=== PATIENT | female | born 1990 | race African-American/Black ===

== ENCOUNTER 2016-11-26 14:33 | Inpatient (IN) | payer OTHER ==
[~2016-11-26] VITALS: Ht 167.6 cm; Wt 66.4 kg
[2016-11-26] MEDS ORDERED: MULT-506 PO (15:23)
[2016-11-26] MEDS ORDERED: MELATAB2 PO (15:23)
--- NOTE | 2016-11-26 16:26 | DIAGNOSTIC IMAGING REPORT ---
RIGHT KNEE 3 VIEWS CLINICAL HISTORY: Bilateral knee pain following fall. COMPARISON: None FINDINGS: Alignment of the right knee is anatomic with the exception of slight lateral patellar tilt. There is no acute fracture or joint effusion. There is minimal spurring of the inferior patella at the origin of the patellar tendon. IMPRESSION: No acute fracture or joint effusion of the right knee. Electronically signed by: Vishnu Deleon M.D. 11/26/2016 4:24 PM Dictated Date/Time: 11/26/2016 4:23 PM
--- NOTE | 2016-11-26 16:27 | DIAGNOSTIC IMAGING REPORT ---
LEFT KNEE 3 VIEWS, LEFT TIBIA/FIBULA 2 VIEWS ROUTINE CLINICAL HISTORY: Fall 10 days ago; bilateral knee and lower leg pain COMPARISON STUDY: None. FINDINGS: No fracture or dislocation within the left knee, fibula, tibia. Soft tissues are unremarkable. No knee effusion. No radiopaque foreign bodies. IMPRESSION: No fracture or dislocation within the left knee, left tibia, or fibula. Electronically signed by: Ramez Self M.D. 11/26/2016 4:25 PM Dictated Date/Time: 11/26/2016 4:23 PM
--- NOTE | 2016-11-26 16:29 | DIAGNOSTIC IMAGING REPORT ---
RIGHT TIBIA/FIBULA 2 VIEWS ROUTINE CLINICAL HISTORY: Bilateral lower leg pain following fall 10 days ago. COMPARISON: None FINDINGS: No acute fracture of the right tibia or fibula is identified. Alignment of the right knee and ankle is anatomic. IMPRESSION: No acute fracture of the right tibia or fibula. Electronically signed by: Vishnu Deleon M.D. 11/26/2016 4:27 PM Dictated Date/Time: 11/26/2016 4:25 PM
[2016-11-26 17:30] LABS: BASO % 0.2 %; BASO ABS # 0.03 K/uL (0-0.2); COMPLETE YES; EOS % 2.3 %; HEMATOCRIT 41.7 % (37-47); IG% 0.2 %; LYMPH % 30.4 %; LYMPH ABS # 4.17 K/uL (1.2-3.4); MEAN CELL VOLUME 96.1 fL (80-100); MEAN CORPUSCULAR HEMOGLOBIN 34.1 pg (25-34); MEAN CORPUSCULAR HGB CONC 35.5 g/dl (32-36); MEAN PLATELET VOLUME 11.1 fL (7.4-10.4); MONO % 4.7 %; NEUT % 62.2 %; PLATELET COUNT 349 K/uL (130-400); RED BLOOD COUNT 4.34 M/uL (4.2-5.4); WHITE BLOOD COUNT 13.72 K/uL (4.8-10.8)
[2016-11-26 17:52] LABS: BUN/CREATININE RATIO 14.3 (10-20); CALCIUM 9.3 mg/dl (8.5-10.1); CREATININE 0.61 mg/dl (0.60-1.20); POTASSIUM 3.5 mmol/L (3.5-5.1); PREG INTERNAL NEGATIVE QC NEG CLEAR BACKGROUND; PREG INTERNAL POSITIVE QC POS CONTROL LINE
[2016-11-26 18:30] LABS: MANUAL MICROSCOPIC REQUIRED? NO; REVIEW REQ? NO; URINE APPEARANCE CLOUDY (CLEAR); URINE BILIRUBIN NEG (NEG); URINE COLOR YELLOW; URINE EPITHELIAL CELL AUTO >30 /lpf (0-5); URINE NITRITE NEG (NEG); URINE PH 7.5 (4.5-7.5); URINE SPECIFIC GRAVITY 1.015 (1.000-1.030); UROBILINOGEN NEG (NEG)
[2016-11-26] MEDS ORDERED: CYANOCOBALAMIN 1000 MCG/ML VIAL IM ONE (18:30)
[2016-11-26] MEDS ORDERED: LORAZEPAM 2 MG/ML 1 ML VIAL ONE (19:47)
[2016-11-26] MEDS ORDERED: AMOXICILLIN 500 MG/10 ML UDP PO STA (19:59)
[2016-11-26] MEDS ORDERED: SODIUM CHLORIDE 0.9% 1000ML 1,000 ML IV STA (19:59)
[2016-11-26] MEDS ORDERED: NURSING VERBAL MED ORDER ONE (20:00)
--- NOTE | 2016-11-26 20:40 | DIAGNOSTIC IMAGING REPORT ---
CERVICAL SPINE MRI HISTORY: Fall. Large weakness. TECHNIQUE: Multiplanar multisequence MRI of the cervical spine was performed without the use of contrast. COMPARISON STUDY: None. FINDINGS: Mild reversal of the normal large curvature. Alignment remains intact. No fracture or subluxation. The visualized posterior fossa is unremarkable. The cervical spinal cord demonstrates a normal signal intensity. Prevertebral soft tissues and the C1-C2 interval are intact. There is normal marrow signal intensity seen throughout the visit osseous structures. The disc spaces are preserved. C2-C3: No significant central canal or neural foraminal narrowing. C3-C4: No significant central canal or neural foraminal narrowing. C4-C5: Tiny focal central disc protrusion which abuts but does not significantly deform the anterior cord. No significant central canal or neural foraminal narrowing. C5-C6: No significant central canal or neural foraminal narrowing. C6-C7: No significant central canal or neural foraminal narrowing. C7-T1: No significant central canal or neural foraminal narrowing. IMPRESSION: 1. No fracture or subluxation within the cervical spine. 2. Mild reversal of the normal lordotic curvature. 3. Tiny focal central disc protrusion at C4-C5 which abuts the anterior cord. However, this no significant central canal or neural foraminal narrowing. Electronically signed by: Ramez Self M.D. 11/26/2016 8:38 PM Dictated Date/Time: 11/26/2016 8:31 PM
--- NOTE | 2016-11-26 20:48 | DIAGNOSTIC IMAGING REPORT ---
THORACIC SPINE MRI HISTORY: Fall. Lower extremity weakness. TECHNIQUE: Multiplanar multisequence MRI of the thoracic spine was performed without the use of contrast. COMPARISON: None. FINDINGS: Alignment is intact. No fracture or subluxation. No significant central canal or neural foraminal narrowing. Paraspinal soft tissues are unremarkable. Disc spaces are preserved. The thoracic spinal cord is normal and course, caliber, and signal intensity. Mild motion artifact. Mild dextroscoliosis. IMPRESSION: Mild dextroscoliosis. Otherwise, normal thoracic spine MRI. Electronically signed by: Ramez Self M.D. 11/26/2016 8:46 PM Dictated Date/Time: 11/26/2016 8:40 PM
--- NOTE | 2016-11-26 21:23 | DIAGNOSTIC IMAGING REPORT ---
LUMBAR SPINE MRI HISTORY: Fall. Lower extremity weakness. TECHNIQUE: Multiplanar multisequence MRI of the lumbar spine was performed without the use of contrast. COMPARISON: None. FINDINGS: For the purpose of the report the L5-S1 disc space will be located on axial image 27 of 30. The conus terminates at the T12-L1 disc space. Normal marrow signal intensity seen throughout the visualized osseous structures. No fracture or subluxation. The disc spaces are preserved. Paraspinal soft tissues are unremarkable. No disc herniations. L1-L2: No significant central canal or neural foraminal narrowing. L2-L3: No significant central canal or neural foraminal narrowing. L3-L4: No significant central canal or neural foraminal narrowing. L4-L5: No significant central canal or neural foraminal narrowing. L5-S1: No significant central canal or neural foraminal narrowing. IMPRESSION: Normal lumbar spine MRI. Electronically signed by: Ramez Self M.D. 11/26/2016 9:21 PM Dictated Date/Time: 11/26/2016 9:16 PM
--- NOTE | 2016-11-26 21:58 | EMERGENCY ROOM VISIT NOTE ---
ED Visit Note First contact with patient: 15:15 Chief Complaint: Lower leg muscle soreness and weakness. History of Present Illness: Ms. Wei is a 26-year-old [place] female who is brought into the ED via ambulance complaining of bilateral lower leg pain and weakness starting from the knees and extending distally to the feet. Historically patient reports that she abuses nitrous oxide. She had similar symptoms of pain and weakness in the lower extremities in December 2015. She was treated at the [facility] by Dr. Lance at that time with a series of B12 injections and she had resolution of symptoms. Patient goes on to report that she started abusing nitrous oxide approximately 3 -4 weeks ago. She then developed lower leg weakness and then fell approximately 10 steps as she was walking out of her house. She reports at the time of the fall she did not strike her head or have loss of consciousness. Since the fall she reports she has not been able to ambulate or bear her weight. She ordered a wheelchair online and has not ambulated or bear weight for the last 10 days. She reports her friend has been helping her by pushing her around and helping her off the wheelchair and onto the toilet and off the wheelchair and into a sofa bed for sleep. 3 days after her fall she started reporting she had was having bilateral knee pain and lower leg pain. She also noted she had pain with knee extension, attempts at weightbearing and attempts at ambulation. Additionally she noted that she was having lower leg swelling 2 days after her fall which is subsequently resolved. On arrival into the emergency department she reported that she was having soreness of the bilateral lower legs extending from the knees and into the feet. She initially indicated that her pain and symptoms were related to the fall. She provided the additional history as noted above after she was initially evaluated for the fall. Currently she describes the pain in both legs as a soreness sensation. She rates her discomfort 3/10. The pain once again extends from the knees down into the feet. Her pain worsens with attempts at weightbearing and palpation throughout this area of discomfort. She has not identified any alleviating factors related to the pain. She reports she has not taken any medications for pain prior to arrival at the hospital. Associated with her symptoms once again is the inability to ambulate or bear weight. She denies headache, dizziness, lightheadedness, visual changes, hearing changes , difficulty speaking, difficulty swallowing, difficulty coordinating upper extremity movements, upper extremity weakness/numbness/tingling, chest pain, shortness of breath, abdominal pain, nausea, vomiting, decreased appetite, cervical, thoracic and lumbar back pain, bowel and bladder dysfunction, genital/ rectal paresthesias. Review of Systems: As noted above in history of present illness. All body systems were reviewed and found to be negative as noted above. Past Medical History: Nitrous oxide abuse. Current Medications: Multivitamin, melatonin. Allergies to Medications: Patient denies. Social History: Patient is University student; she feels safe in her home environment; she denies tobacco use; she admits to alcohol use at nitrous oxide abuse. Physical Examination: Vital Signs: Date Time Temp Pulse Resp B/P Pulse Ox O2 Delivery O2 Flow Rate FiO2 11/26/16 21:12 90 18 126/57 99 Room Air 11/26/16 18:26 80 16 122/62 99 Room Air 11/26/16 14:39 37.1 80 16 131/66 97 Room Air GENERAL: 26-year-old female in no acute distress, nontoxic-appearing, afebrile and hemodynamically stable. NEUROLOGICAL: Awake, alert and oriented to person, place and time. Answering questions appropriately and following commands. Good hand eye coordination. Cranial nerves II through XII grossly intact. Pronator drift test negative. Good short-term and long-term recall. SKIN: Warm, dry and pink. Right Knee: Superficial laceration/abrasion over the patella. She also be noted that the patient has dry scaling skin over both lower legs and striae extending from the distal thigh over the knees anteriorly. HEENT: Atraumatic and normocephalic. Skull: No bony deformities, depressions or tenderness. No raccoon's eyes or sánchez signs. No drainage from the ears or the nostril; no hemotympanum. PERRLA. EOMI without nystagmus. No malocclusion. Airway patent. No intraoral trauma. Speech normal. Trachea midline. No jugular venous distention. BACK: No tenderness over the bony cervical, thoracic and lumbar spines. No tenderness throughout the paraspinous muscles. No muscle spasms palpable. THORAX: Lungs sounds are clear to auscultation and equal bilaterally with symmetrical chest wall. HEART: Regular rate and rhythm. No gallops, rubs or murmurs are appreciated. ABDOMEN: Flat, soft and nontender. Positive bowel sounds in all quadrants. No guarding, rigidity or organomegaly. PELVIS: Stable and nontender to compression and rock. UPPER EXTREMITIES: No gross bony deformities. No tenderness in the shoulders, elbows, forearms, wrists or hands. Full range of motion in these joints. All distal neurovascular statuses are intact and equal bilaterally. LOWER EXTREMITIES: No gross bony deformity. No shortening or malrotation. No tenderness over the hip or thigh. Mild diffuse tenderness over the entire knee with prominence over the joint lines. There is also tenderness throughout the lower leg including the calf, ankle and feet. Knee examination shows no joint effusions, patellar apprehension test, laxity of the collateral cruciate ligaments. No swelling or dependent edema noted throughout the lower legs. No calf tenderness or cords. No bony deformity at the ankle or foot. No laxity of the ankle ligamentous structures. 2+ patellar reflexes intact and equal bilaterally. Was not able to elicit a Achilles deep tendon reflexes. 4/5 muscle strength in abduction, abduction, flexion and extension of the hips, flexion and extension of the knees. Minimal movement at the ankles and toes but no appreciated strength. Patient was able to differentiate light and sharp sensations through all dermatomes of the lower leg. Dorsalis pedis and anterior tibialis pulses were intact and equal bilaterally. Capillary refill was brisk. No calf tenderness or cords. ED Course: Patient is assessed as noted above. Patient was offered pain medications and refused. Laboratory Testing: Test 11/26/16 17:17 11/26/16 17:30 11/26/16 18:48 Range/Units White Blood Count 13.72 4.8-10.8 K/uL Red Blood Count 4.34 4.2-5.4 M/uL Hemoglobin 14.8 12.0-16.0 g/dL Hematocrit 41.7 37-47 % Mean Corpuscular Volume 96.1 80-100 fL Mean Corpuscular Hemoglobin 34.1 25-34 pg Mean Corpuscular Hemoglobin Concent 35.5 32-36 g/dl Platelet Count 349 130-400 K/uL Mean Platelet Volume 11.1 7.4-10.4 fL Neutrophils (%) (Auto) 62.2 % Lymphocytes (%) (Auto) 30.4 % Monocytes (%) (Auto) 4.7 % Eosinophils (%) (Auto) 2.3 % Basophils (%) (Auto) 0.2 % Neutrophils # (Auto) 8.52 1.4-6.5 K/uL Lymphocytes # (Auto) 4.17 1.2-3.4 K/uL Monocytes # (Auto) 0.65 0.11-0.59 K/uL Eosinophils # (Auto) 0.32 0-0.5 K/uL Basophils # (Auto) 0.03 0-0.2 K/uL RDW Standard Deviation 52.3 36.4-46.3 fL RDW Coefficient of Variation 14.9 11.5-14.5 % Immature Granulocyte % (Auto) 0.2 % Immature Granulocyte # (Auto) 0.03 0.00-0.02 K/uL Sodium Level 141 136-145 mmol/L Potassium Level 3.5 3.5-5.1 mmol/L Chloride Level 106 98-107 mmol/L Carbon Dioxide Level 22 21-32 mmol/L Anion Gap 13.0 3-11 mmol/L Blood Urea Nitrogen 9 7-18 mg/dl Creatinine 0.61 0.60-1.20 mg/dl Est Creatinine Clear Calc Drug Dose 133.0 ml/min Estimated GFR () 147.1 Estimated GFR (Non- 126.9 BUN/Creatinine Ratio 14.3 10-20 Random Glucose 82 70-99 mg/dl Calcium Level 9.3 8.5-10.1 mg/dl Human Chorionic Gonadotropin, Qual NEG NEG Urine Color YELLOW Urine Appearance CLOUDY CLEAR Urine pH 7.5 4.5-7.5 Urine Specific [place] 1.015 1.000-1.030 Urine Protein NEG NEG Urine Glucose (UA) NEG NEG Urine Ketones 1+ NEG Urine Occult Blood NEG NEG Urine Nitrite NEG NEG Urine Bilirubin NEG NEG Urine Urobilinogen NEG NEG Urine Leukocyte Esterase LARGE NEG Urine WBC (Auto) 5-10 0-5 /hpf Urine RBC (Auto) 0-4 0-4 /hpf Urine Hyaline Casts (Auto) 1-5 0-5 /lpf Urine Epithelial Cells (Auto) >30 0-5 /lpf Urine Bacteria (Auto) 2+ NEG Vitamin B12 Level > 2000 211-911 pg/mL Right Knee X-Rays: Were read by myself and the radiologist showing no acute fractures or dislocations. No joint effusion. Left Knee X-Rays: Were read by myself and the radiologist showing no acute fractures or dislocations. No joint effusions. Right Lower Leg X-Rays: Were read by myself and the radiologist showing no acute fractures or dislocations. Left Lower Leg X-Rays: Were read by myself and the radiologist showing no acute fractures or dislocations. Cervical Spine MRI: Were reviewed by myself and read by the radiologist showing no fractures or subluxations, mild reversal of the normal lordotic curve, tiny focal central disc protrusion at the C4-C5 level which abuts the anterior cord but no significant central cord or no oral foramina narrowing. Thoracic Spine MRI: Was reviewed by myself and read by the radiologist and showed mild dextroscoliosis otherwise normal thoracic MRI. Lumbar Spine MRI: Was reviewed by myself and read by the radiologist and shows no acute fractures, subluxations. The disc space are well-preserved. No paraspinous soft tissue disruptions, no disc herniations; normal lumbar spine MRI. Patient's case was consult with Dr. Richardson, neurologist; he recommended MRI of the spine, basic laboratory testing, injection of 1000 g of vitamin B12 and transfer to tertiary care center. Patient's case was consulted with Dr. Rivera [facility], 2 times; he recommended transfer to tertiary care center for toxicology, back specialist and neurological specialist care. I initial spoke with Dr. Ortega, neurologist, at [facility], patient was accepted for transfer but the transfer center reported that there was no bed available and would probably not be available for 24-48 hours. I then spoke with Dr. Jaimes, hospitalist at [facility], he recommended that the MRIs be obtained and that he be recontacted for transfer; he did note that the hospital bed situation was critical. Patient was given an injection of B12 IM, 1000 g and was given 1 mg of Ativan IV for her claustrophobia for the MRI. Patient was assessed multiple times during her stay in the emergency department. Patient's case was reviewed with Dr. Lyman multiple times during her stay in the emergency department. After patient's MRI I reevaluated the patient she continued to have the same symptoms. I spoke with Dr. Vidales hospitalist, he recommended psychiatric evaluation. Patient's case was once again reviewed with Dr. Lyman; he apparently assessed the patient and contacted the psychiatrist on-call who recommended further evaluation to rule out medical causes of her symptoms. Additionally Dr. Lyman did contact the hospitalist for medical observation/admission. Patient was educated on tonight's findings. Clinical Impression: Bilateral lower neuropathy. Status post fall. Nitrous oxide abuse. Decision-Making: Initially my differential diagnosis I considered lower leg fracture, spinal cord injury, stroke, neurotoxicity from nitrous oxide abuse, conversion syndrome and other causes. Disposition and Plan: Patient's care was transferred to the hospitalist for final disposition and plan.
[2016-11-26] MEDS ORDERED: ACETAMINOPHEN 325 MG TAB PO PRN (23:15)
--- NOTE | 2016-11-27 00:04 | EMERGENCY ROOM VISIT NOTE ---
ED Visit Note First contact with patient: 17:13 This is a 26-year-old female who was seen in conjunction with the physician retail assistant store manager, Westley Beverly. The patient has abused nitrous oxide in the past and has had some lower extremity weakness related to this. She states that she has been abusing nitrous oxide recently and over the past 10 days, she has developed weakness in her lower extremities below the knees to the point where she is unable to walk and has been using a wheelchair. The patient's exam reveals weakness with dorsiflexion as well as some weakness with plantar flexion. The patient is unable to stand on her extremities because of the weakness. She is unable to walk. Evaluation included blood work as well as MRI of the complete spine. These were normal. Because of the patient's symptoms, the patient will be admitted by Dr. Vidales. I did speak with Dr. Navarrete at the request of Dr. Vidales. He feels that the patient requires additional medical evaluation in the hospital and mental health services can be consulted while the patient is in the hospital.
[2016-11-27 00:30] VITALS: O2SAT 98
--- NOTE | 2016-11-27 02:12 | History and Physical ---
History & Physical Date & Time of Service: Nov 27, 2016 at 01:57 Chief Complaint: Ambulatory Dysfunction, Nitrous Oxide Overdose Primary Care Physician: No Doctor, Assigned History of Present Illness Source: patient The patient is a 26-year-old Pashto female brought to the emergency Department via ambulance due to complaint of bilateral lower leg pain and weakness and inability to ambulate. Her initial symptoms began in December 2015 when she was first noted to abuse nitrous oxide. At that time, she was treated with a series of vitamin B12 injections, and reportedly had resolution of symptoms. She began to use nitrous oxide again approximately 3-4 weeks ago , and then again developed lower leg weakness and numbness, and at that time fell approximately 10 steps. She reports that since that time she has not been able to ambulate, and has been using a wheelchair that she purchased on her own since that time. She denies any other areas of pain, bladder or bowel incontinence, or functional impairment of upper extremity. Social History Smoking Status: Never Smoker Smokeless Tobacco Use: No Drug Use: other (nitrous oxide.) Marital Status: single Housing status: lives alone Multi-Drug Resistant Organisms History of MDRO: No Allergies Coded Allergies: No Known Allergies (Unverified , 11/26/16) Home Medications Scheduled Multivitamin (Multivitamin), 1 TAB PO DAILY Scheduled PRN Melatonin (Melatonin Maximum Strengt), 5 MG PO HS PRN for Sleep Review of Systems The patient denies chest pain, palpitations, shortness of breath, cough, vision change, hearing change, sore throat, fevers, chills, sweats, weight change, nausea, vomiting, abdominal pain, pelvic pain, blood in urine or stool, dysuria , urinary frequency or urgency, headache, memory loss, rash, abnormal bruising or bleeding, back or neck pain, night sweats, or allergy symptoms. The review of systems is otherwise negative other than for that already noted above, and at least 10 systems have been reviewed. Physical Exam Vital Signs Date Time Temp Pulse Resp B/P Pulse Ox O2 Delivery O2 Flow Rate FiO2 11/27/16 00:19 92 16 128/68 97 Room Air 11/26/16 22:19 89 118/64 99 Room Air 11/26/16 21:12 90 18 126/57 99 Room Air 11/26/16 18:26 80 16 122/62 99 Room Air 11/26/16 14:39 37.1 80 16 131/66 97 Room Air The patient is awake, well-developed and adequately nourished, alert and oriented 3, normocephalic and atraumatic, lying in bed and in no acute distress. HEENT--PERRL, EOMI, mucous membranes moist, and oropharynx normal. Neck--supple, no JVD or bruits, thyroid normal, trachea midline, no adenopathy. Heart--normal S1 and S2, no extra beats, no murmurs, rubs or gallops. Lungs--clear bilaterally with good air movement, no respiratory distress, no accessory muscle use. Abdomen--normal bowel sounds and soft, nontender and nondistended, no hernias or masses, no organomegaly. Extremities--no cyanosis, clubbing or edema. There are good distal pulses b/l. Dermatologic--normal skin turgor, normal color, warm and dry, no abnormal lymph nodes, no rash. Neuromuscular--cranial nerves II through XII grossly intact, upper extremities motor and sensory exam normal bilaterally. Lower extremity with normal examination except for inability to dorsiflex bilateral ankles. Sensation is intact. Psychiatric--flat affect. Diagnostics Laboratory Results Results Past 24 Hours Test 11/26/16 17:17 11/26/16 17:30 11/26/16 18:48 Range/Units White Blood Count 13.72 4.8-10.8 K/uL Red Blood Count 4.34 4.2-5.4 M/uL Hemoglobin 14.8 12.0-16.0 g/dL Hematocrit 41.7 37-47 % Mean Corpuscular Volume 96.1 80-100 fL Mean Corpuscular Hemoglobin 34.1 25-34 pg Mean Corpuscular Hemoglobin Concent 35.5 32-36 g/dl Platelet Count 349 130-400 K/uL Mean Platelet Volume 11.1 7.4-10.4 fL Neutrophils (%) (Auto) 62.2 % Lymphocytes (%) (Auto) 30.4 % Monocytes (%) (Auto) 4.7 % Eosinophils (%) (Auto) 2.3 % Basophils (%) (Auto) 0.2 % Neutrophils # (Auto) 8.52 1.4-6.5 K/uL Lymphocytes # (Auto) 4.17 1.2-3.4 K/uL Monocytes # (Auto) 0.65 0.11-0.59 K/uL Eosinophils # (Auto) 0.32 0-0.5 K/uL Basophils # (Auto) 0.03 0-0.2 K/uL RDW Standard Deviation 52.3 36.4-46.3 fL RDW Coefficient of Variation 14.9 11.5-14.5 % Immature Granulocyte % (Auto) 0.2 % Immature Granulocyte # (Auto) 0.03 0.00-0.02 K/uL Sodium Level 141 136-145 mmol/L Potassium Level 3.5 3.5-5.1 mmol/L Chloride Level 106 98-107 mmol/L Carbon Dioxide Level 22 21-32 mmol/L Anion Gap 13.0 3-11 mmol/L Blood Urea Nitrogen 9 7-18 mg/dl Creatinine 0.61 0.60-1.20 mg/dl Est Creatinine Clear Calc Drug Dose 133.0 ml/min Estimated GFR () 147.1 Estimated GFR (Non- 126.9 BUN/Creatinine Ratio 14.3 10-20 Random Glucose 82 70-99 mg/dl Calcium Level 9.3 8.5-10.1 mg/dl Human Chorionic Gonadotropin, Qual NEG NEG Urine Color YELLOW Urine Appearance CLOUDY CLEAR Urine pH 7.5 4.5-7.5 Urine Specific [place] 1.015 1.000-1.030 Urine Protein NEG NEG Urine Glucose (UA) NEG NEG Urine Ketones 1+ NEG Urine Occult Blood NEG NEG Urine Nitrite NEG NEG Urine Bilirubin NEG NEG Urine Urobilinogen NEG NEG Urine Leukocyte Esterase LARGE NEG Urine WBC (Auto) 5-10 0-5 /hpf Urine RBC (Auto) 0-4 0-4 /hpf Urine Hyaline Casts (Auto) 1-5 0-5 /lpf Urine Epithelial Cells (Auto) >30 0-5 /lpf Urine Bacteria (Auto) 2+ NEG Vitamin B12 Level > 2000 211-911 pg/mL Diagnostic Radiology Patient Name: HAJA LINDSEY Unit Number: [id number] Dictated: 11/26/161624 Transcribed: 11/26/161624 JA Printed Date/Time: [~ rep prt dt]/[~ rep prt tm] [~ rep ct labl] - [~ rep ct ivnm] [facility] [place] [place] [address] Dictated: 11/26/165 Transcribed: 11/26/161624 JA Printed Date/Time: [~ rep prt dt]/[~ rep prt tm] [~ rep ct labl] - [~ rep ct ivnm] RIGHT TIBIA/FIBULA 2 VIEWS ROUTINE CLINICAL HISTORY: Bilateral lower leg pain following fall 10 days ago. COMPARISON: None FINDINGS: No acute fracture of the right tibia or fibula is identified. Alignment of the right knee and ankle is anatomic. IMPRESSION: No acute fracture of the right tibia or fibula. Electronically signed by: Vishnu Deleon M.D. 11/26/2016 4:27 PM Dictated Date/Time: 11/26/2016 4:25 PM The status of this report is Signed. Draft = Not yet reviewed or approved by Radiologist. Signed = Reviewed and approved by Radiologist. <AttendingPhy></AttendingPhy> <FamilyPhy>No Doctor, Assigned</FamilyPhy> < PrimaryPhy>No Doctor, Assigned</PrimaryPhy> <UnitNumber>[id number]</UnitNumber> <VisitNumber>[id number]</VisitNumber> <PatientName>HAJA LINDSEY</PatientName> <DateOfBirth>1990</DateOfBirth> <Location>[facility]</Location> <ServiceDate></ServiceDate> <MNE>ESINDI</MNE> <OrderingPhy>Westley Beverly PA-C</ OrderingPhy> <OrderingPhyMNE>f rep ord dr bhardwaj</OrderingPhyMNE> <DictatingPhyMNE> f rep dict dr bhardwaj</DictatingPhyMNE> <CCListMNE>f rep ct mne</CCListMNE> < AdmittingPhyMNE>f pt admit dr bhardwaj</AdmittingPhyMNE> <AttendingPhyMNE>f pt attend dr bhardwaj</AttendingPhyMNE> <ConsultingPhyMNE>f pt consult dr bhardwaj</ConsultingPhyMNE> <FamilyPhyMNE>f pt fam dr bhardwaj</FamilyPhyMNE> <OtherPhyMNE>f pt other dr bhardwaj</OtherPhyMNE> < PrimaryPhyMNE>f pt prim care dr bhardwaj</PrimaryPhyMNE> <ReferringPhyMNE>f pt referring dr bhardwaj</ReferringPhyMNE> CLINICAL HISTORY: Fall 10 days ago; bilateral knee and lower leg pain COMPARISON STUDY: None. FINDINGS: No fracture or dislocation within the left knee, fibula, tibia. Soft tissues are unremarkable. No knee effusion. No radiopaque foreign bodies. IMPRESSION: No fracture or dislocation within the left knee, left tibia, or fibula. Electronically signed by: Ramez Self M.D. 11/26/2016 4:25 PM Dictated Date/Time: 11/26/2016 4:23 PM RIGHT KNEE 3 VIEWS CLINICAL HISTORY: Bilateral knee pain following fall. COMPARISON: None FINDINGS: Alignment of the right knee is anatomic with the exception of slight lateral patellar tilt. There is no acute fracture or joint effusion. There is minimal spurring of the inferior patella at the origin of the patellar tendon. IMPRESSION: No acute fracture or joint effusion of the right knee. Electronically signed by: Vishnu Deleon M.D. 11/26/2016 4:24 PM Dictated Date/Time: 11/26/2016 4:23 PM The status of this report is Signed Patient Name: HAJA LINDSEY Unit Number: [id number] Dictated: 11/26/161622 Transcribed: 11/26/161622 [employer] Printed Date/Time: [~ rep prt dt]/[~ rep prt tm] [~ rep ct labl] - [~ rep ct ivnm] [facility] [place] [place] [address] Dictated: 11/26/161622 Transcribed: 11/26/161622 [employer] Printed Date/Time: [~ rep prt dt]/[~ rep prt tm] [~ rep ct labl] - [~ rep ct ivnm] LEFT KNEE 3 VIEWS, LEFT TIBIA/FIBULA 2 VIEWS ROUTINE CLINICAL HISTORY: Fall 10 days ago; bilateral knee and lower leg pain COMPARISON STUDY: None. FINDINGS: No fracture or dislocation within the left knee, fibula, tibia. Soft tissues are unremarkable. No knee effusion. No radiopaque foreign bodies. IMPRESSION: No fracture or dislocation within the left knee, left tibia, or fibula. Electronically signed by: Ramez Self M.D. 11/26/2016 4:25 PM Dictated Date/Time: 11/26/2016 4:23 PM The status of this report is Signed. Draft = Not yet reviewed or approved by Radiologist. Signed = Reviewed and approved by Radiologist. <AttendingPhy></AttendingPhy> <FamilyPhy>No Doctor, Assigned</FamilyPhy> < PrimaryPhy>No Doctor, Assigned</PrimaryPhy> <UnitNumber>[id number]</UnitNumber> <VisitNumber>[id number]</VisitNumber> <PatientName>HAJA LINDSEY</PatientName> <DateOfBirth>1990</DateOfBirth> <Location>[facility]</Location> <ServiceDate></ServiceDate> <MNE>ESINDI</MNE> <OrderingPhy>Westley Beverly PA-C</ OrderingPhy> <OrderingPhyMNE>f rep ord dr bhardwaj</OrderingPhyMNE> <DictatingPhyMNE> f rep dict dr bhardwaj</DictatingPhyMNE> <CCListMNE>f rep ct mne</CCListMNE> < AdmittingPhyMNE>f pt admit dr bhardwaj</AdmittingPhyMNE> <AttendingPhyMNE>f pt attend dr bhardwaj</AttendingPhyMNE> <ConsultingPhyMNE>f pt consult dr bhardwaj</ConsultingPhyMNE> <FamilyPhyMNE>f pt fam dr bhardwaj</FamilyPhyMNE> <OtherPhyMNE>f pt other dr bhardwaj</OtherPhyMNE> < PrimaryPhyMNE>f pt prim care dr bhardwaj</PrimaryPhyMNE> <ReferringPhyMNE>f pt referring dr bhardwaj</ReferringPhyMNE> Patient Name: HAJA LINDSEY Unit Number: [id number] Dictated: 11/26/162039 Transcribed: 11/26/162039 [employer] Printed Date/Time: [~ rep prt dt]/[~ rep prt tm] [~ rep ct labl] - [~ rep ct ivnm] [facility] [place] [place] [address] Dictated: 11/26/162039 Transcribed: 11/26/162039 [facility] Printed Date/Time: [~ rep prt dt]/[~ rep prt tm] [~ rep ct labl] - [~ rep ct ivnm] THORACIC SPINE MRI HISTORY: Fall. Lower extremity weakness. TECHNIQUE: Multiplanar multisequence MRI of the thoracic spine was performed without the use of contrast. COMPARISON: None. FINDINGS: Alignment is intact. No fracture or subluxation. No significant central canal or neural foraminal narrowing. Paraspinal soft tissues are unremarkable. Disc spaces are preserved. The thoracic spinal cord is normal and course, caliber, and signal intensity. Mild motion artifact. Mild dextroscoliosis. IMPRESSION: Mild dextroscoliosis. Otherwise, normal thoracic spine MRI. Electronically signed by: Ramez Self M.D. 11/26/2016 8:46 PM Dictated Date/Time: 11/26/2016 8:40 PM The status of this report is Signed. Draft = Not yet reviewed or approved by Radiologist. Signed = Reviewed and approved by Radiologist. <AttendingPhy></AttendingPhy> <FamilyPhy>No Doctor, Assigned</FamilyPhy> < PrimaryPhy>No Doctor, Assigned</PrimaryPhy> <UnitNumber>[id number]</UnitNumber> <VisitNumber>[id number]</VisitNumber> <PatientName>HAJA LINDSEY</PatientName> <DateOfBirth>1990</DateOfBirth> <Location>[facility]</Location> <ServiceDate></ServiceDate> <MNE>ESINDI</MNE> <OrderingPhy>Tavo Lyman D.O.</ OrderingPhy> <OrderingPhyMNE>f rep ord dr bhardwaj</OrderingPhyMNE> <DictatingPhyMNE> f rep dict dr bhardwaj</DictatingPhyMNE> <CCListMNE>f rep ct mne</CCListMNE> < AdmittingPhyMNE>f pt admit dr bhardwaj</AdmittingPhyMNE> <AttendingPhyMNE>f pt attend dr bhardwaj</AttendingPhyMNE> <ConsultingPhyMNE>f pt consult dr bhardwaj</ConsultingPhyMNE> <FamilyPhyMNE>f pt fam dr bhardwaj</FamilyPhyMNE> <OtherPhyMNE>f pt other dr bhardwaj</OtherPhyMNE> < PrimaryPhyMNE>f pt prim care dr bhardwaj</PrimaryPhyMNE> <ReferringPhyMNE>f pt referring dr bhardwaj</ReferringPhyMNE> Patient Name: HAJA LINDSEY Unit Number: [id number] Dictated: 11/26/162115 Transcribed: 11/26/162115 [facility] Printed Date/Time: [~ rep prt dt]/[~ rep prt tm] [~ rep ct labl] - [~ rep ct ivnm] [facility] [place] [place] [address] Dictated: 11/26/162115 Transcribed: 11/26/162115 [facility] Printed Date/Time: [~ rep prt dt]/[~ rep prt tm] [~ rep ct labl] - [~ rep ct ivnm] HISTORY: Fall. Lower extremity weakness. TECHNIQUE: Multiplanar multisequence MRI of the lumbar spine was performed without the use of contrast. COMPARISON: None. FINDINGS: For the purpose of the report the L5-S1 disc space will be located on axial image 27 of 30. The conus terminates at the T12-L1 disc space. Normal marrow signal intensity seen throughout the visualized osseous structures. No fracture or subluxation. The disc spaces are preserved. Paraspinal soft tissues are unremarkable. No disc herniations. L1-L2: No significant central canal or neural foraminal narrowing. L2-L3: No significant central canal or neural foraminal narrowing. L3-L4: No significant central canal or neural foraminal narrowing. L4-L5: No significant central canal or neural foraminal narrowing. L5-S1: No significant central canal or neural foraminal narrowing. IMPRESSION: Normal lumbar spine MRI. Electronically signed by: Ramez Slef M.D. 11/26/2016 9:21 PM Dictated Date/Time: 11/26/2016 9:16 PM The status of this report is Signed. Draft = Not yet reviewed or approved by Radiologist. Signed = Reviewed and approved by Radiologist. <AttendingPhy></AttendingPhy> <FamilyPhy>No Doctor, Assigned</FamilyPhy> < PrimaryPhy>No Doctor, Assigned</PrimaryPhy> <UnitNumber>[id number]</UnitNumber> <VisitNumber>[id number]</VisitNumber> <PatientName>HAJA LINDSEY</PatientName> <DateOfBirth>1990</DateOfBirth> <Location>[facility]</Location> <ServiceDate></ServiceDate> <MNE>ESINDI</MNE> <OrderingPhy>Tavo Lyman D.O.</ OrderingPhy> <OrderingPhyMNE>f rep ord dr bhardwaj</OrderingPhyMNE> <DictatingPhyMNE> f rep dict dr bhardwaj</DictatingPhyMNE> <CCListMNE>f rep ct mne</CCListMNE> < AdmittingPhyMNE>f pt admit dr bhardwaj</AdmittingPhyMNE> <AttendingPhyMNE>f pt attend dr bhardwaj</AttendingPhyMNE> <ConsultingPhyMNE>f pt consult dr bhardwaj</ConsultingPhyMNE> <FamilyPhyMNE>f pt fam dr bhardwaj</FamilyPhyMNE> <OtherPhyMNE>f pt other dr bhardwaj</OtherPhyMNE> < PrimaryPhyMNE>f pt prim care dr bhardwaj</PrimaryPhyMNE> <ReferringPhyMNE>f pt referring dr bhardwaj</ReferringPhyMNE> Patient Name: HAJA LINDSEY Unit Number: [id number] Dictated: 11/26/162030 Transcribed: 11/26/162030 [facility] Printed Date/Time: [~ rep prt dt]/[~ rep prt tm] [~ rep ct labl] - [~ rep ct ivnm] [facility] [place] [place] [address] Dictated: 11/26/162030 Transcribed: 11/26/162030 [facility] Printed Date/Time: [~ rep prt dt]/[~ rep prt tm] [~ rep ct labl] - [~ rep ct ivnm] HISTORY: Fall. Large weakness. TECHNIQUE: Multiplanar multisequence MRI of the cervical spine was performed without the use of contrast. COMPARISON STUDY: None. FINDINGS: Mild reversal of the normal large curvature. Alignment remains intact. No fracture or subluxation. The visualized posterior fossa is unremarkable. The cervical spinal cord demonstrates a normal signal intensity. Prevertebral soft tissues and the C1-C2 interval are intact. There is normal marrow signal intensity seen throughout the visit osseous structures. The disc spaces are preserved. C2-C3: No significant central canal or neural foraminal narrowing. C3-C4: No significant central canal or neural foraminal narrowing. C4-C5: Tiny focal central disc protrusion which abuts but does not significantly deform the anterior cord. No significant central canal or neural foraminal narrowing. C5-C6: No significant central canal or neural foraminal narrowing. C6-C7: No significant central canal or neural foraminal narrowing. C7-T1: No significant central canal or neural foraminal narrowing. IMPRESSION: 1. No fracture or subluxation within the cervical spine. 2. Mild reversal of the normal lordotic curvature. 3. Tiny focal central disc protrusion at C4-C5 which abuts the anterior cord. However, this no significant central canal or neural foraminal narrowing. Electronically signed by: Ramez Self M.D. 11/26/2016 8:38 PM Dictated Date/Time: 11/26/2016 8:31 PM The status of this report is Signed. Draft = Not yet reviewed or approved by Radiologist. Signed = Reviewed and approved by Radiologist. <AttendingPhy></AttendingPhy> <FamilyPhy>No Doctor, Assigned</FamilyPhy> < PrimaryPhy>No Doctor, Assigned</PrimaryPhy> <UnitNumber>[id number]</UnitNumber> <VisitNumber>[id number]</VisitNumber> <PatientName>HAJA LINDSEY</PatientName> <DateOfBirth>1990</DateOfBirth> <Location>[facility]</Location> <ServiceDate></ServiceDate> <MNE>ESINDI</MNE> <OrderingPhy>Tavo Lyman D.O.</ OrderingPhy> <OrderingPhyMNE>f rep ord dr bhardwaj</OrderingPhyMNE> <DictatingPhyMNE> f rep dict dr bhardwaj</DictatingPhyMNE> <CCListMNE>f rep ct mne</CCListMNE> < AdmittingPhyMNE>f pt admit dr bhardwaj</AdmittingPhyMNE> <AttendingPhyMNE>f pt attend dr bhardwaj</AttendingPhyMNE> <ConsultingPhyMNE>f pt consult dr bhardwaj</ConsultingPhyMNE> <FamilyPhyMNE>f pt fam dr bhardwaj</FamilyPhyMNE> <OtherPhyMNE>f pt other dr bhardwaj</OtherPhyMNE> < PrimaryPhyMNE>f pt prim care dr bhardwaj</PrimaryPhyMNE> <ReferringPhyMNE>f pt referring dr bhardwaj</ReferringPhyMNE> Impression Assessment and Plan 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 She has had an extensive set of imaging studies while in the emergency department. She will be admitted to the medical floor, for EMG/NCV studies, and neurology consult. If this assessment is otherwise negative, she may need an inpatient rehabilitation stay. Of note, attempts were made to refer the patient to several tertiary care centers, with no beds available. She will also need a psychiatry assessment. Level of Care Med/Surg Advanced Directives Existing Advance Directive: No Existing Living Will: No Existing Power of Staff Occupational Therapist: No Resuscitation Status FULL RESUSCITATION VTE Prophylaxis VTE Risk Assessment Done? Y/N: Yes Risk Level: High Given or contraindicated: SCD's
[2016-11-27 04:36] VITALS: BP 91/60; PULSE 85; TEMP 36.5; O2SAT 98; Ht 167.6 cm; Wt 66.4 kg
[2016-11-27 06:31] LABS: INR 1.1 (0.9-1.1); PROTHROMBIN TIME (PATIENT) 11.9 SECONDS (9.0-12.0)
[2016-11-27] MEDS: MULTIVITAMIN TAB PO SCH (07:55)
[2016-11-27] MEDS: ENOXAPARIN 40 MG/0.4 ML SYR SQ SCH (07:55)
[2016-11-27] MEDS ORDERED: INFLUENZA VIRUS QUAD VACCINE 0.5 ML SYR IM. ONE (08:00)
[2016-11-27] MEDS ORDERED: INFLUENZA ADMINISTRATION CHARGE ONE (08:00)
[2016-11-27 10:00] VITALS: BP 100/65; PULSE 87; TEMP 36.7; O2SAT 100
--- NOTE | 2016-11-27 10:50 | Neurology Consultation ---
Neurology Consultation Date of Consultation: Nov 27, 2016. Attending Physician: Henry Gutierrez M.D. 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 The patient has had similar symptoms last December secondary to nitrous oxide abuse and toxicity. Symptoms improved after B12 injections for about a month. She does report that in the last year she has not been very physical, and is noted that she doesn't seem to have the same endurance with running. Per review of the outpatient chart Dr. Howe seen her for the same problem in January. At that time he noted that she had a history of also alcohol abuse in the past as well. Patient denies any current alcohol use. Unfortunately the patient started using nitrous oxide again about a month ago. In the last 3 weeks she's had slowly progressive pain in her legs, numbness and tingling, and a sense of leg weakness causing ambulatory dysfunction. She reported that at the beginning of November she bought a wheelchair over the Internet to help her with ambulatory dysfunction. She has not been reevaluated since symptoms have recurred. A year ago she was initially treated by her primary care with B12 injections. Patient denies any significant issues or symptoms with her upper extremities. Denies any trouble eating or swallowing. She does report over the last year some mild thinking and memory problems. No bowel or bladder symptoms. MRI of her C-spine, T-spine, and L-spine were done on this admission were reviewed by myself and normal. MRI of the brain reported images from last year were reviewed and unremarkable. Patient did have her B12 level checked after an injection and was found to be above 2000. Past Medical/Surgical History History of polysubstance abuse including alcohol, nitrous oxide, and tobacco Patient denies any other major health problems Family History No family history of neuromuscular disorders Social History Patient is a [employer]. She is normally independent in her activities of daily living. She has been using a wheelchair on her own for the last 2 weeks. She has been using nitrous oxide recreationally. History of alcohol abuse/excess. She does smoke tobacco. Smokeless Tobacco Use: No Drug Use: other (nitrous oxide.) Marital Status: single Allergies Coded Allergies: No Known Allergies (Unverified , 11/26/16) Current Inpatient Medications Current Inpatient Medications Medications (Trade) Dose Ordered Sig/Anna Route Start Time Stop Time Status Last Admin Dose Admin Acetaminophen (Tylenol Tab) 650 mg Q4H PRN PO 11/26/16 23:15 12/26/16 23:14 Multivitamins (Multivitamin Tab) 1 tab DAILY PO 11/27/16 08:00 12/27/16 08:59 11/27/16 07:55 1 TAB Enoxaparin Sodium (Lovenox Inj) 40 mg QAM SQ 11/27/16 08:00 12/27/16 08:59 11/27/16 07:55 40 MG Review of Systems Except for the above noted in history of present illness, complete review of systems is otherwise negative. Physical Exam Vital Signs (Past 24 Hrs): Date Time Temp Pulse Resp B/P Pulse Ox O2 Delivery O2 Flow Rate FiO2 11/27/16 04:36 36.5 85 20 91/60 98 Room Air 11/27/16 00:30 98 Room Air 11/27/16 00:19 92 16 128/68 97 Room Air 11/26/16 22:19 89 118/64 99 Room Air 11/26/16 21:12 90 18 126/57 99 Room Air 11/26/16 18:26 80 16 122/62 99 Room Air 11/26/16 14:39 37.1 80 16 131/66 97 Room Air Gen.: Patient is alert and oriented in no acute distress lying in bed Heart: Regular rate and rhythm Extremities: No gross deformities or rashes noted Neurological examination: Mental status: Patient is alert and oriented to person place and time. Able to give his own history. Attention concentration normal for the situation. Speech is fluent without any dysarthria or aphasia noted Cranial nerves: Funduscopic examination was difficult to visualize. Pupils equally round and reactive to light. Extraocular muscles intact without nystagmus. No facial asymmetry noted. Facial sensation intact. Tongue midline. Good palatal elevation. Good shoulder shrug bilaterally. Hearing grossly intact voice. Strength: 5/5 both proximal and bilateral upper extremities. Bilateral hip flexion 4+/5, knee extension and flexion 4+/5, dorsiflexion 3/5, plantarflexion 3+/5.Tone is normal. Sensation: Grossly intact to light touch in all extremities. Patient does have decrease sensation in her distal lower extremities approximately to the level of the mid calf bilaterally (left greater than right) to light touch. The patient has severe vibratory loss in distal lower extremities. Mild position sense loss. Deep tendon reflexes: +2 in bilateral & biceps, and trace patellar. Toes are up- going to plantar stimulation bilaterally Coordination: Patient has good finger to nose without dysmetria Station within the bed is normal. Gait was not tested as the patient did not feel safe standing reports she needs both arms hang onto something. Laboratory Results Past 24 Hours: 11/26/16: Red Blood Count 4.34, Mean Corpuscular Volume 96.1, Mean Corpuscular Hemoglobin 34.1, Mean Corpuscular Hemoglobin Concent 35.5, Mean Platelet Volume 11.1, Neutrophils (%) (Auto) 62.2, Lymphocytes (%) (Auto) 30.4, Monocytes (%) (Auto) 4.7, Eosinophils (%) (Auto) 2.3, Basophils (%) (Auto) 0.2, Neutrophils # (Auto) 8.52, Lymphocytes # (Auto) 4.17, Monocytes # (Auto) 0.65, Eosinophils # (Auto) 0.32, Basophils # (Auto) 0.03 11/26/16 17:17 Test 11/26/16 17:17 11/26/16 17:30 11/26/16 18:48 11/27/16 05:42 White Blood Count 13.72 K/uL (4.8-10.8) Red Blood Count 4.34 M/uL (4.2-5.4) Hemoglobin 14.8 g/dL (12.0-16.0) Hematocrit 41.7 % (37-47) Mean Corpuscular Volume 96.1 fL (80-100) Mean Corpuscular Hemoglobin 34.1 pg (25-34) Mean Corpuscular Hemoglobin Concent 35.5 g/dl (32-36) Platelet Count 349 K/uL (130-400) Mean Platelet Volume 11.1 fL (7.4-10.4) Neutrophils (%) (Auto) 62.2 % Lymphocytes (%) (Auto) 30.4 % Monocytes (%) (Auto) 4.7 % Eosinophils (%) (Auto) 2.3 % Basophils (%) (Auto) 0.2 % Neutrophils # (Auto) 8.52 K/uL (1.4-6.5) Lymphocytes # (Auto) 4.17 K/uL (1.2-3.4) Monocytes # (Auto) 0.65 K/uL (0.11-0.59) Eosinophils # (Auto) 0.32 K/uL (0-0.5) Basophils # (Auto) 0.03 K/uL (0-0.2) RDW Standard Deviation 52.3 fL (36.4-46.3) RDW Coefficient of Variation 14.9 % (11.5-14.5) Immature Granulocyte % (Auto) 0.2 % Immature Granulocyte # (Auto) 0.03 K/uL (0.00-0.02) Anion Gap 13.0 mmol/L (3-11) Est Creatinine Clear Calc Drug Dose 133.0 ml/min Estimated GFR () 147.1 Estimated GFR (Non- 126.9 BUN/Creatinine Ratio 14.3 (10-20) Calcium Level 9.3 mg/dl (8.5-10.1) Human Chorionic Gonadotropin, Qual NEG (NEG) Urine Color YELLOW Urine Appearance CLOUDY (CLEAR) Urine pH 7.5 (4.5-7.5) Urine Specific [place] 1.015 (1.000-1.030) Urine Protein NEG (NEG) Urine Glucose (UA) NEG (NEG) Urine Ketones 1+ (NEG) Urine Occult Blood NEG (NEG) Urine Nitrite NEG (NEG) Urine Bilirubin NEG (NEG) Urine Urobilinogen NEG (NEG) Urine Leukocyte Esterase LARGE (NEG) Urine WBC (Auto) 5-10 /hpf (0-5) Urine RBC (Auto) 0-4 /hpf (0-4) Urine Hyaline Casts (Auto) 1-5 /lpf (0-5) Urine Epithelial Cells (Auto) >30 /lpf (0-5) Urine Bacteria (Auto) 2+ (NEG) Vitamin B12 Level > 2000 pg/mL (211-911) Prothrombin Time 11.9 SECONDS (9.0-12.0) Prothromb Time International Ratio 1.1 (0.9-1.1) Imaging As noted above in history of present illness Impression This is a 26-year-old right-handed female with signs of neurotoxicity secondary to nitrous oxide abuse. Residual neurological symptoms include severe vibratory and position sense loss , signs of gradient peripheral neuropathy, distal greater than proximal leg weakness, gait dysfunction, and suspicion for possible cognitive side effects. Plan No neurological workup necessary at this time. It appears that her symptoms are secondary to nitrous oxide abuse (which is a primary toxicology issues not a neurological issue). Nitrous oxide changes cobalt in vitamin B12 from Co1+ to Co2+, so it is ineffective to follow serum B12 levels as they are often normal or elevated. The problem is that the patient does not have a functional vitamin B12 that can be used by her nerves creating impaired nerve myelination. The treatment is empiric B12 injections. There is no right or wrong way to treat with B12 replacement injections. A reasonable treatment course would be B12 [id number] 3 times a week or weekly for 1-2 months. Follow-up with primary care for B12 injections Follow-up with physical therapy for treatment. Agree with psychiatric evaluation for drug abuse and treatment. There is no indication for EMG at this time. EMG would be technically limited in the hospital and potentially could be normal with symptoms lasting less than 6 weeks. In addition EMG would not change the patient's acute treatment. If the patient does not fully recover in 2 months, could consider an outpatient EMG for neurological prognostication. I did discuss with the patient that her symptoms are likely due to nitrous oxide abuse. Also discussed that with chronic nitrous oxide abuse there is the potential for permanent neurological damage. This not only includes her peripheral nerves but can also include her brain with permanent cognitive deficits. Could consider checking vitamin E level, vitamin D level, and vitamin B6 level for other nutritional deficiencies that could contribute to her symptoms. Please note that vitamin B6 is the one vitamin that can cause neurotoxicity if levels are too low or too high. Otherwise there is no need for neurological follow-up at this time as this is more of a toxicology case rather than a primary neurological issue. Please call or page me if there is any questions or concerns.
--- NOTE | 2016-11-27 11:07 | Medical Student: [facility] ---
Med Student History & Physical Date & Time of Service: Nov 27, 2016 at 09:01 Chief Complaint: Ambulatory Dysfunction, Nitrous Oxide Overdose Primary Care Physician: No Doctor, Assigned History of Present Illness Source: patient, hospital records 26-year-old female presenting to the emergency department with 3-4 weeks of weakness and pain in her distal lower extremities bilaterally. Patient explains that symptoms are secondary to nitrous oxide use. Her leg weakness has gotten worse over the past ten days. She purchased a wheelchair after falling down being unable to stand. She did not come to the hospital earlier because she was uninsured until 11/26. She also noted ankle swelling over the course of symptoms which subsided days ago. She also has difficulty standing and ataxia that she does not attribute to her leg weakness. She says she feels as though "she forgot how to stand". She experienced similar symptoms in December of this year. At this time the weakness in her legs was accompanied by weakness in her hands. She went to Dr. Mcpherson at [facility] and received daily vitamin B12 injections. She had an MRI of her head at that time which was unremarkable. Her symptoms improved over the next month. She does note that although her symptoms improved , she continued to have residual weakness that she attributed to not being physically active. She was given vitamin B12 IM 1000mg at 16:30 on 11/26. She notes improvement in lower extremity weakness since that time. She was able to stand to use the bathroom with assistance from nursing, but still had poor balance. 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 Past medical history is unremarkable as is family history. She is not on any home medications. Family History Father: no pertinent history Mother: no pertinent history Social History Smoking Status: Current Every Day Smoker Smokeless Tobacco Use: No Drug Use: other (nitrous oxide.) Marital Status: single Housing status: lives alone Occupational Status: [employer] student Allergies Coded Allergies: No Known Allergies (Unverified , 11/26/16) Medications Melatonin (Melatonin Maximum Strengt), 5 MG PO HS PRN for Sleep Multivitamin (Multivitamin), 1 TAB PO DAILY Review of Systems As stated in HPI, otherwise unremarkable Physical Exam Vital Signs (24 Hours) Date Time Temp Pulse Resp B/P Pulse Ox O2 Delivery O2 Flow Rate FiO2 11/27/16 04:36 36.5 85 20 91/60 98 Room Air 11/27/16 00:30 98 Room Air 11/27/16 00:19 92 16 128/68 97 Room Air 11/26/16 22:19 89 118/64 99 Room Air 11/26/16 21:12 90 18 126/57 99 Room Air 11/26/16 18:26 80 16 122/62 99 Room Air 11/26/16 14:39 37.1 80 16 131/66 97 Room Air General Appearance: WD/WN, no apparent distress Head: normocephalic, atraumatic Eyes: normal inspection, PERRL, EOMI Neurologic/Psych: alert, normal mood/affect, oriented x 3 Mental Status: oriented to person, place and time. Affect was appropriate. Did take time to answer questions, but that appeared to be due to language barrier. Memory appeared intact. Cranial Nerves: CN1: not assessed CN2: intact, PERRL, visual acuity appropriate, visual field appropriate, funduscopic exam unremarkable. CN3,4, and 6: intact on assessment, EOMI, no ptosis CN5: intact, bilateral sensation to light touch in three regions. CN7: intact, facial expressions appropriate, puffs out cheeks, resists eye opening. No dysarthria. CN8: intact, no difficulty hearing bilaterally. CN9, 10: intact, symmetric palate elevation. CN11: intact, shoulder shrug 5/5 bilaterally CN12: intact, tongue protrudes midline. Sensory: sensation to light touch intact and equal bilaterally in upper and lower extremities. Vibratory sensation is intact in upper extremities, but absent in distal lower extremities. Proprioception is intact in upper and lower extremities bilaterally. Motor: Strength is 5/5 in upper extremities bilaterally in deltoids, biceps, triceps, finger abduction and finger police clerk. Strength is 4+/5 in hip flexion and extension and knee flexion and extension. Strength is 3/5 bilaterally in ankle plantarflexion and dorsiflexion. Reflexes are 2+ bilaterally in biceps and brachioradialis. Absent reflexes in bilateral patellas and Achilles. Upgoing Babinski reflex bilaterally. Tone appears normal, no rigidity or spasticity, no atrophy appreciated. Cerebellar: finger to nose intact, heal to pantoja intact. Did not have patient stand to appreciate gait. Diagnostics Laboratory Results Results Past 24 Hours Test 11/26/16 17:17 11/26/16 17:30 11/26/16 18:48 11/27/16 05:42 Range/Units White Blood Count 13.72 4.8-10.8 K/uL Red Blood Count 4.34 4.2-5.4 M/uL Hemoglobin 14.8 12.0-16.0 g/dL Hematocrit 41.7 37-47 % Mean Corpuscular Volume 96.1 80-100 fL Mean Corpuscular Hemoglobin 34.1 25-34 pg Mean Corpuscular Hemoglobin Concent 35.5 32-36 g/dl Platelet Count 349 130-400 K/uL Mean Platelet Volume 11.1 7.4-10.4 fL Neutrophils (%) (Auto) 62.2 % Lymphocytes (%) (Auto) 30.4 % Monocytes (%) (Auto) 4.7 % Eosinophils (%) (Auto) 2.3 % Basophils (%) (Auto) 0.2 % Neutrophils # (Auto) 8.52 1.4-6.5 K/uL Lymphocytes # (Auto) 4.17 1.2-3.4 K/uL Monocytes # (Auto) 0.65 0.11-0.59 K/uL Eosinophils # (Auto) 0.32 0-0.5 K/uL Basophils # (Auto) 0.03 0-0.2 K/uL RDW Standard Deviation 52.3 36.4-46.3 fL RDW Coefficient of Variation 14.9 11.5-14.5 % Immature Granulocyte % (Auto) 0.2 % Immature Granulocyte # (Auto) 0.03 0.00-0.02 K/uL Sodium Level 141 136-145 mmol/L Potassium Level 3.5 3.5-5.1 mmol/L Chloride Level 106 98-107 mmol/L Carbon Dioxide Level 22 21-32 mmol/L Anion Gap 13.0 3-11 mmol/L Blood Urea Nitrogen 9 7-18 mg/dl Creatinine 0.61 0.60-1.20 mg/dl Est Creatinine Clear Calc Drug Dose 133.0 ml/min Estimated GFR () 147.1 Estimated GFR (Non- 126.9 BUN/Creatinine Ratio 14.3 10-20 Random Glucose 82 70-99 mg/dl Calcium Level 9.3 8.5-10.1 mg/dl Human Chorionic Gonadotropin, Qual NEG NEG Urine Color YELLOW Urine Appearance CLOUDY CLEAR Urine pH 7.5 4.5-7.5 Urine Specific [place] 1.015 1.000-1.030 Urine Protein NEG NEG Urine Glucose (UA) NEG NEG Urine Ketones 1+ NEG Urine Occult Blood NEG NEG Urine Nitrite NEG NEG Urine Bilirubin NEG NEG Urine Urobilinogen NEG NEG Urine Leukocyte Esterase LARGE NEG Urine WBC (Auto) 5-10 0-5 /hpf Urine RBC (Auto) 0-4 0-4 /hpf Urine Hyaline Casts (Auto) 1-5 0-5 /lpf Urine Epithelial Cells (Auto) >30 0-5 /lpf Urine Bacteria (Auto) 2+ NEG Vitamin B12 Level > 2000 211-911 pg/mL Prothrombin Time 11.9 9.0-12.0 SECONDS Prothromb Time International Ratio 1.1 0.9-1.1 Impression Assessment and Plan Assessment: 26-year-old female presenting with subacute distal lower extremity weakness, pain and ataxia over the past 3-4 weeks subsequent to nitrous oxide abuse. Weakness and ataxia due to nitrous oxide effect on vitamin B12 resulting in an inactive form of the vitamin. Therefore, myelin synthesis is impaired resulting in demyelination of certain heavily myelinated nerves like the dorsal column of the spinal tract. Peripheral neuropathy and ataxia are common symptoms as is peripheral weakness. Confusion and psychosis can also be subsequent symptoms of the vitamin B12 impairment, but was not appreciated in this patient. Alternative diagnoses of Guillian-[place] Syndrome, chronic inflammatory polyneuropathy, spinal cord/MSK/brain trauma, dorsalis tabes, and Multiple Sclerosis were entertained, but not likely. GBS would have progressed by this point and would have likely followed an infection. Multiple sclerosis unlikely from lack of evidence on MRI's, and distal bilateral distribution of weakness/ decreased reflexes indicating lower motor neuron disease. Chronic inflammatory polyneuropathy would follow the slower course and relapse/remit nature, nut it would likely also be present in the proximal muscles and the upper extremities. Dorsalis tabes secondary to syphilis unlikely, although it would also effect the dorsal column, it would not likely present with the distal weakness she has described. Plan: - Nitrous oxide toxicity: continue vitamin B12 IM 1000mg daily outpatient. Psych consult. EMG could be considered if strength is not regained within the next few months. - Gait instability: PT rehabilitation. - Nitrous oxide abuse: drug rehabilitation/therapy. Neurology attending addendum: Patient was seen and evaluated with medical student. Please see my separate neurology consult note for full evaluation and recommendations. -Sparkle Burris, DO Advanced Directives Existing Advance Directive: No Existing Living Will: No Existing Power of Window Clerk: No
[2016-11-27] MEDS ORDERED: CYANOCOBALAMIN 1000 MCG/ML VIAL IM SCH (12:00)
--- NOTE | 2016-11-27 14:39 | Progress Note ---
Subjective Date of Service: Nov 27, 2016. Subjective pt sitting in wheelchair brushing hair, is very open about her relapse in nitrous oxide abuse, is in agreement to proceed to rehab treatment to help regain leg strength. no injuries noted from falls. Review of Systems Constitutional: + fatigue, + weakness, No chills, No fever Respiratory: No cough, No shortness of breath, No sputum Cardiac: No chest pain, No edema, No orthopnea Abdomen: No diarrhea, No nausea, No pain, No vomiting Neurologic: + balance problems, + numbness/tingling, + weakness, No memory loss Psychiatric: + anxiety, + substance abuse, No anhedonism, No depression symptoms Objective Vital Signs Date Time Temp Pulse Resp B/P Pulse Ox O2 Delivery O2 Flow Rate FiO2 11/27/16 10:59 Room Air 11/27/16 10:00 36.7 87 18 100/65 100 Room Air 11/27/16 04:36 36.5 85 20 91/60 98 Room Air 11/27/16 00:30 98 Room Air 11/27/16 00:19 92 16 128/68 97 Room Air 11/26/16 22:19 89 118/64 99 Room Air 11/26/16 21:12 90 18 126/57 99 Room Air 11/26/16 18:26 80 16 122/62 99 Room Air 11/26/16 14:39 37.1 80 16 131/66 97 Room Air Physical Exam General Appearance: WD/WN, + moderate distress Neck: supple, thyroid normal Respiratory/Chest: chest non-tender, lungs clear, normal breath sounds Cardiovascular: regular rate, rhythm, no murmur Abdomen: normal bowel sounds, non tender, soft Extremities: no pedal edema, no calf tenderness Neurologic/Psychiatric: alert, + motor weakness Skin: normal color, warm/dry, no rash Laboratory Results Last 24 Hours Test 11/26/16 17:17 11/26/16 17:30 11/26/16 18:48 11/27/16 05:42 White Blood Count 13.72 K/uL Red Blood Count 4.34 M/uL Hemoglobin 14.8 g/dL Hematocrit 41.7 % Mean Corpuscular Volume 96.1 fL Mean Corpuscular Hemoglobin 34.1 pg Mean Corpuscular Hemoglobin Concent 35.5 g/dl Platelet Count 349 K/uL Mean Platelet Volume 11.1 fL Neutrophils (%) (Auto) 62.2 % Lymphocytes (%) (Auto) 30.4 % Monocytes (%) (Auto) 4.7 % Eosinophils (%) (Auto) 2.3 % Basophils (%) (Auto) 0.2 % Neutrophils # (Auto) 8.52 K/uL Lymphocytes # (Auto) 4.17 K/uL Monocytes # (Auto) 0.65 K/uL Eosinophils # (Auto) 0.32 K/uL Basophils # (Auto) 0.03 K/uL RDW Standard Deviation 52.3 fL RDW Coefficient of Variation 14.9 % Immature Granulocyte % (Auto) 0.2 % Immature Granulocyte # (Auto) 0.03 K/uL Sodium Level 141 mmol/L Potassium Level 3.5 mmol/L Chloride Level 106 mmol/L Carbon Dioxide Level 22 mmol/L Anion Gap 13.0 mmol/L Blood Urea Nitrogen 9 mg/dl Creatinine 0.61 mg/dl Est Creatinine Clear Calc Drug Dose 133.0 ml/min Estimated GFR () 147.1 Estimated GFR (Non- 126.9 BUN/Creatinine Ratio 14.3 Random Glucose 82 mg/dl Calcium Level 9.3 mg/dl Human Chorionic Gonadotropin, Qual NEG Urine Color YELLOW Urine Appearance CLOUDY Urine pH 7.5 Urine Specific [place] 1.015 Urine Protein NEG Urine Glucose (UA) NEG Urine Ketones 1+ Urine Occult Blood NEG Urine Nitrite NEG Urine Bilirubin NEG Urine Urobilinogen NEG Urine Leukocyte Esterase LARGE Urine WBC (Auto) 5-10 /hpf Urine RBC (Auto) 0-4 /hpf Urine Hyaline Casts (Auto) 1-5 /lpf Urine Epithelial Cells (Auto) >30 /lpf Urine Bacteria (Auto) 2+ Vitamin B12 Level > 2000 pg/mL Prothrombin Time 11.9 SECONDS Prothromb Time International Ratio 1.1 Test 11/27/16 12:13 Assessment and Plan 26 with neurologic affects of nitrous oxide abute I spoke to Dr Pearce(sp?) a [facility] neurologist, reviewed the case and he suggested that we continue B12 supplementation and refer to rehab, consider psychological counseling to help with substance abuse issue, but no acute transfer would be warranted I discussed this with pt and she is in agreement case management is notified
[2016-11-27 15:49] VITALS: BP 97/63; PULSE 76; TEMP 36.3; O2SAT 97
[2016-11-27] MEDS ORDERED: LORAZEPAM 0.5 MG TAB PO PRN (17:15)
[2016-11-27] MEDS: NICOTINE 21 MG/24 HR TDSY TD SCH (18:16)
[2016-11-28 00:30] VITALS: BP 105/61; PULSE 101; TEMP 36.6; O2SAT 98
[2016-11-28 07:57] VITALS: BP 103/62; PULSE 92; TEMP 36.5; O2SAT 98
[2016-11-28] MEDS ORDERED: CYANOCOBALAMIN 1000 MCG/ML VIAL IM SCH (09:00)
[2016-11-28] MEDS: NICOTINE 21 MG/24 HR TDSY TD SCH (10:56)
[2016-11-28] MEDS: MULTIVITAMIN TAB PO SCH (11:14)
[2016-11-28] MEDS: ENOXAPARIN 40 MG/0.4 ML SYR SQ SCH (11:14)
[2016-11-28] MEDS: CYANOCOBALAMIN 1000 MCG/ML VIAL IM SCH (11:15)
[2016-11-28 15:07] VITALS: BP 100/63; PULSE 75; TEMP 36.8; O2SAT 99
--- NOTE | 2016-11-28 15:41 | Progress Note ---
Subjective Date of Service: Nov 28, 2016. Subjective pt has questions about how she can tell her friends that she is sick but not tell about the nitrous oxide use, I offered psychological consult as I feel she is denying her habit or addiction. She does not wish to pursue this consult at this time Review of Systems Constitutional: + fatigue, + weakness, + weight loss, No chills, No fever Respiratory: No cough, No shortness of breath Cardiac: No chest pain, No edema Abdomen: No diarrhea, No nausea, No pain, No vomiting Neurologic: + balance problems, + paralysis, + weakness, No memory loss Psychiatric: + anxiety, + depression symptoms Objective Vital Signs Date Time Temp Pulse Resp B/P Pulse Ox O2 Delivery O2 Flow Rate FiO2 11/28/16 00:30 36.6 101 20 105/61 98 Room Air 11/27/16 20:00 Room Air 11/27/16 15:49 36.3 76 18 97/63 97 Room Air 11/27/16 15:37 Room Air 11/27/16 10:59 Room Air 11/27/16 10:00 36.7 87 18 100/65 100 Room Air Physical Exam General Appearance: WD/WN, + moderate distress Neck: supple, no JVD Respiratory/Chest: chest non-tender, lungs clear, normal breath sounds Cardiovascular: regular rate, rhythm, no murmur Abdomen: normal bowel sounds, non tender, soft Extremities: no pedal edema, no calf tenderness Neurologic/Psychiatric: alert, + motor weakness (can move legs against gravity , no reflexes seen) Laboratory Results Last 24 Hours Test 11/27/16 12:13 11/28/16 06:13 Assessment and Plan 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, looking for acute rehab placement I spoke to Dr Pearce(sp?) a [facility] neurologist 11/27/16, reviewed the case and he suggested that we continue B12 supplementation and refer to rehab, consider psychological counseling to help with substance abuse issue, pt is not interested in this at this time case management is notified and working on placement
[2016-11-28 23:31] VITALS: BP 110/65; PULSE 96; TEMP 36.7; O2SAT 99
[2016-11-29 08:04] VITALS: BP 105/62; PULSE 92; TEMP 36.4; O2SAT 99
[2016-11-29] MEDS: MULTIVITAMIN TAB PO SCH (09:57)
[2016-11-29] MEDS: NICOTINE 21 MG/24 HR TDSY TD SCH (09:57)
[2016-11-29] MEDS: CYANOCOBALAMIN 1000 MCG/ML VIAL IM SCH (09:58)
[2016-11-29] MEDS: ENOXAPARIN 40 MG/0.4 ML SYR SQ SCH (09:58)
--- NOTE | 2016-11-29 12:08 | Progress Note ---
Subjective Date of Service: Nov 29, 2016. Subjective pt is concerned that her legs have not improved, will look for rehab and neurology follow up as outpt Review of Systems Constitutional: No chills, No fever, No weakness Respiratory: No cough, No shortness of breath Cardiac: No chest pain, No edema Abdomen: No diarrhea, No nausea, No pain, No vomiting Female : No dysuria, No urinary frequency Neurologic: + balance problems, + weakness Psychiatric: No anhedonism, No anxiety, No depression symptoms Objective Vital Signs Date Time Temp Pulse Resp B/P Pulse Ox O2 Delivery O2 Flow Rate FiO2 11/29/16 08:04 36.4 92 16 105/62 99 Room Air 11/29/16 00:00 Room Air 11/28/16 23:31 36.7 96 20 110/65 99 Room Air 11/28/16 16:00 Room Air 11/28/16 15:07 36.8 75 16 100/63 99 Room Air Physical Exam General Appearance: WD/WN, + mild distress Neck: supple, thyroid normal Respiratory/Chest: chest non-tender, lungs clear, normal breath sounds Cardiovascular: regular rate, rhythm, no murmur Abdomen: non tender, soft Neurologic/Psychiatric: alert, + motor weakness, + pertinent finding (no patella reflex) Laboratory Results Last 24 Hours Test 11/29/16 04:44 Assessment and Plan 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, looking for acute rehab placement I spoke to Dr Pearce(sp?) a [facility] neurologist 11/27/16, reviewed the case and he suggested that we continue B12 supplementation and refer to rehab, consider psychological counseling to help with substance abuse issue, pt is not interested in this at this time given slow recovery I quizzed pt if she ever 'blacked out' while abusing nitrous , she said no but she fell asleep, I was thinking of a peripheral neuropathy from position, she states that she was only asleep for 30 minutes or so, not clear if related in her mind with any one episode case management is notified and working on placement
[2016-11-29 16:13] VITALS: BP 109/73; PULSE 84; TEMP 36.4; O2SAT 99
[2016-11-29 23:33] VITALS: BP 104/62; PULSE 79; TEMP 36.7; O2SAT 100
[2016-11-30 06:47] LABS: CREATININE 0.63 mg/dl (0.60-1.20)
[2016-11-30 07:46] VITALS: BP 99/59; PULSE 75; TEMP 36.6; O2SAT 98
[2016-11-30] MEDS: NICOTINE 21 MG/24 HR TDSY TD SCH (08:00)
[2016-11-30] MEDS: ENOXAPARIN 40 MG/0.4 ML SYR SQ SCH (09:17)
[2016-11-30] MEDS: MULTIVITAMIN TAB PO SCH (09:18)
[2016-11-30] MEDS: CYANOCOBALAMIN 1000 MCG/ML VIAL IM SCH (09:19)
[2016-11-30 09:30] VITALS: O2SAT 98
--- NOTE | 2016-11-30 10:58 | Progress Note ---
Subjective Date of Service: Nov 30, 2016. Subjective slight improvement if any to leg strength Review of Systems Constitutional: No chills, No fever Respiratory: No cough Cardiac: No chest pain, No orthopnea Abdomen: + constipation, No diarrhea, No nausea, No pain Objective Vital Signs Date Time Temp Pulse Resp B/P Pulse Ox O2 Delivery O2 Flow Rate FiO2 11/30/16 07:46 36.6 75 16 99/59 98 Room Air 11/30/16 00:00 Room Air 11/29/16 23:33 36.7 79 20 104/62 100 Room Air 11/29/16 20:05 Room Air 11/29/16 16:13 36.4 84 18 109/73 99 Room Air 11/29/16 16:08 Room Air Physical Exam General Appearance: WD/WN, + mild distress Eyes: PERRL, EOMI Neck: supple, no JVD Respiratory/Chest: chest non-tender, lungs clear, normal breath sounds Cardiovascular: regular rate, rhythm, no murmur Neurologic/Psychiatric: + pertinent finding (till with b/l leg weakness 3/5 = B /L, no hyperreflexia ) Laboratory Results Last 24 Hours Test 11/30/16 05:58 Creatinine 0.63 mg/dl Est Creatinine Clear Calc Drug Dose 128.8 ml/min Estimated GFR () 145.5 Estimated GFR (Non- 125.5 Assessment and Plan 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, looking for acute rehab placement, slow to little improvement I spoke to Dr Pearce(sp?) a [facility] neurologist 11/27/16, reviewed the case and he suggested that we continue B12 supplementation and refer to rehab, consider psychological counseling to help with substance abuse issue, pt is not interested in this at this time given slow recovery I quizzed pt if she ever 'blacked out' while abusing nitrous , she said no but she fell asleep, I was thinking of a peripheral neuropathy from position, she states that she was only asleep for 30 minutes or so, not clear if related in her mind with any one episode case management is notified and working on placement
[2016-11-30 14:46] VITALS: BP 92/64; PULSE 72; O2SAT 98
[2016-11-30 16:20] VITALS: BP 100/66; PULSE 86; TEMP 36.6; O2SAT 100
[2016-11-30 23:36] VITALS: BP 98/61; PULSE 66; TEMP 36.7; O2SAT 100
[2016-12-01 07:32] VITALS: BP 105/65; PULSE 93; TEMP 36.5; O2SAT 99
[2016-12-01] MEDS: ENOXAPARIN 40 MG/0.4 ML SYR SQ SCH (08:58)
[2016-12-01] MEDS: MULTIVITAMIN TAB PO SCH (08:59)
[2016-12-01] MEDS: CYANOCOBALAMIN 1000 MCG/ML VIAL IM SCH (08:59)
[2016-12-01] MEDS: NICOTINE 21 MG/24 HR TDSY TD SCH (08:59)
--- NOTE | 2016-12-01 09:54 | Progress Note ---
Subjective Date of Service: Dec 01, 2016. Subjective Pt evaluation today including: conversation w/ patient, physical exam, chart review, lab review, review of studies, conversation w/ strategy consultant, review of inpatient medication list Feeling generalized weakness, however is improving, able to up to rest room by self with the wheelchair, has been eating drinking okay, mild constipation need to suppository, no other complaint Review of Systems Constitutional: + weakness, No chills, No fatigue, No fever, No problem reported, No sweats, No weight loss Eyes: No diplopia, No discharge, No eye pain, No redness, No worsening of vision ENT: No dental problems, No hearing loss, No nasal symptoms, No sore throat, No tinnitus, No trouble swallowing, No unusual epistaxis Respiratory: No cough, No dyspnea at rest, No dyspnea on exertion, No hemoptysis, No shortness of breath, No sputum, No wheezing Cardiac: No PND, No chest pain, No claudication, No edema, No orthopnea, No palpitations Abdomen: + constipation, No diarrhea, No nausea, No pain, No vomiting Musculoskeletal: No calf pain, No joint pain, No muscle pain, No swelling Female : No abnormal vaginal bleeding, No dysuria, No hematuria, No incontinence, No urinary frequency, No vaginal discharge Neurologic: No balance problems, No memory loss, No numbness/tingling, No paralysis, No vertigo, No weakness Psychiatric: No anhedonism, No anxiety, No depression symptoms, No insomnia, No substance abuse Heme: No abnormal bleeding/bruising, No clotting problems, No night sweats, No swollen lymph nodes Endo: No excessive thirst, No excessive urination, No fatigue Skin: No bleeding, No color change, No itch, No new/changing skin lesions, No rash Objective Vital Signs Date Time Temp Pulse Resp B/P Pulse Ox O2 Delivery O2 Flow Rate FiO2 12/01/16 07:32 36.5 93 16 105/65 99 Room Air 12/01/16 00:00 Room Air 11/30/16 23:36 36.7 66 20 98/61 100 Room Air 11/30/16 16:30 Room Air 11/30/16 16:20 36.6 86 17 100/66 100 Room Air 11/30/16 14:46 72 98 Physical Exam General Appearance: WD/WN, no apparent distress, + pertinent finding (looks tired) Eyes: normal inspection, PERRL, EOMI, sclerae normal ENT: normal ENT inspection, hearing grossly normal, pharynx normal Neck: supple, no adenopathy, thyroid normal, no JVD, no carotid bruits, trachea midline Respiratory/Chest: chest non-tender, lungs clear, normal breath sounds, no respiratory distress, no accessory muscle use Cardiovascular: regular rate, rhythm, no edema, no gallop, no JVD, no murmur Abdomen: normal bowel sounds, non tender, soft, no organomegaly, no pulsatile mass Extremities: normal range of motion, non-tender, normal inspection, no pedal edema, no calf tenderness, normal capillary refill, pelvis stable Neurologic/Psychiatric: clerk manager II-XII nml as tested, no motor/sensory deficits, alert, normal mood/affect, oriented x 3 Skin: normal color, warm/dry, no rash Lymphatic: no adenopathy Assessment and Plan 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 admitted on 11/26/2016, Has been stable and looking for acute rehab placement, slow to little improvement Dr. Leonard spoke to Dr Pearce(sp?) a [facility] neurologist 11/27/16 , reviewed the case and he suggested that we continue B12 supplementation and refer to rehab, Per progress note psychological counseling to help with substance abuse issue, however pt is not interested in this at this time She is slow recovery , counselling her to stay away of any abuse of medications or narcotic or anything else, Without follow-up doctors advice may cause permanent organ damage and even , she understand and agreed peripheral neuropathy stable, continue current care Constipation, will treat with Colace as needed Patient is ready for placement when bed available Offered a chance to talk to family all parent, patient declined Continued [facility] stay due to: home environment unsafe for pt Discharge planning: rehab hospital
[2016-12-01] MEDS ORDERED: NCDT21 TD (09:57)
[2016-12-01] MEDS ORDERED: CYNI1000 IM (10:03)
[2016-12-01] MEDS ORDERED: DOCUSATE SODIUM 100 MG CAP PO ONE (10:15)
[2016-12-01 11:40] LABS: VIT E ALPHA-TOCOPHEROL 6.1 mg/L (5.7-19.9); VIT E BETA&GAMMA-TOCOPHEROL 1.4 mg/L (<=4.3)
[2016-12-01 15:37] VITALS: BP 95/63; PULSE 75; TEMP 36.4; O2SAT 97
[2016-12-01] MEDS: DOCUSATE SODIUM 100 MG CAP PO SCH (20:00)
[2016-12-01 23:54] VITALS: BP 100/65; PULSE 65; TEMP 36.6; O2SAT 100
[2016-12-02] VITALS: O2SAT 100
[2016-12-02] MEDS: NICOTINE 21 MG/24 HR TDSY TD SCH (08:00)
[2016-12-02] MEDS: DOCUSATE SODIUM 100 MG CAP PO SCH (08:00)
[2016-12-02 08:11] VITALS: BP 102/57; PULSE 89; TEMP 36.6; O2SAT 98
[2016-12-02] MEDS: CYANOCOBALAMIN 1000 MCG/ML VIAL IM SCH (08:17)
[2016-12-02] MEDS: ENOXAPARIN 40 MG/0.4 ML SYR SQ SCH (08:17)
[2016-12-02] MEDS: MULTIVITAMIN TAB PO SCH (08:17)
[2016-12-02 10:00] VITALS: O2SAT 98
--- NOTE | 2016-12-02 12:02 | Discharge Instructions ---
Discharge Instructions Admission Reason for Admission: Ambulatory Dysfunction, Nitrous Oxide Overdose Discharge Discharge Diagnosis / Problem: nitrous oxide abus Discharge Goals Goal(s): Decrease discomfort, Improve function, Increase independence, Improve disease control, Improve nutritional status, Learn about illness, Diagnostic testing, Therapeutic intervention, Prevent Disease Progression, Specific goals Activity Recommendations Activity Level: Up Ad Anaid Therapies: Physical Therapy, Occupational Therapy Lifting Limitations: none Exercise/Sports Limitations: none Shower/Bathe: no limitations . Additional Information Patient informed of condition: Yes Advance Directives: No DNR: No Level of Care: Acute Rehab Communicable Disease: No Prognosis: Improving Instructions / Follow-Up Instructions / Follow-Up you was admitted because of nitrous oxide abuse you have neurologic affects of nitrous oxide abuse you have Vit B12 deficiency you should continue treatment as in below: B12 1000mcg im daily for 3 dose then weekly for 4 week, then monthly for 6 month - you need to follow up with your primary care physician in 1 week, - take medication as instructed, never overdose or any misuse, or take with alcohol, because misuse of medicine may cause organ damage or , call your primary care physician if have questions of medicaitons. - call your primary care physician OR go to local emergency room if has any fever/chill, chest pain, shortness of breathing, nausea/vomiting/abdominal pain , facial droop/slurry speech/local weakness, or if has any questions. - fall precaution - diet as instructed - you need to follow up with your subspecialist - you should understand that it is important to follow up the above instruction , and "not following the above instruction", or "drug abuse" or "any kind of over dose" may cause may cause permanent organ damage and even . Current Hospital Diet Patient's current hospital diet: Regular Diet Discharge Diet Recommended Diet: Regular Diet Pending Studies Studies pending at discharge: no Physician Orders On Transfer POLST Discussion: Not Applicable Medical Emergencies . Who to Call and When: Medical Emergencies: If at any time you feel your situation is an emergency, please call 911 immediately. . Non-Emergent Contact Non-Emergency issues call your: Primary Care Provider . . "Provider Documentation" section prepared by Rene Ayers. Core Measure Problem Core Measures: None
--- NOTE | 2016-12-02 12:15 | Discharge Summary ---
Discharge Summary Admission Date: Nov 26, 2016 at 23:12 Discharge Date: Dec 02, 2016 Principal Diagnosis: nitrous oxide abuse Problems/Secondary Diagnoses: neurologic affects of nitrous oxide abuse Vit B12 deficiency Procedures: no Consultations: no Medication Reconciliation New Medications: Cyanocobalamin (Cyanocobalamin) 1,000 Mcg/Ml Inj 1000 MCG IM DAILY for 3 Days, #3 1000mcg im daily for 3 dose then weekly for 4 week, then monthly for 6 month I am dispend total 3 dose the rest need to Follow-up with primary care for B12 injections Nicotine (Nicotine) 1 Patch Tdsy 1 PATCH TD QAM for 30 Days Continued Medications: Melatonin (Melatonin Maximum Strengt) 5 Mg Tab 5 MG PO HS PRN for Sleep for 30 Days, #30 TAB Multivitamin (Multivitamin) Tab 1 TAB PO DAILY, TAB Discharge Exam Feeling better, sitting up in bedside, eating breakfast, still need help out of bed to the rest room Review of Systems: Constitutional: + fatigue, + weakness, No chills, No fever, No problem reported, No sweats, No weight loss Eyes: No diplopia, No discharge, No eye pain, No problem reported, No redness, No worsening of vision ENT: No dental problems, No hearing loss, No nasal symptoms, No problem reported, No sore throat, No tinnitus, No trouble swallowing, No unusual epistaxis Respiratory: No cough, No dyspnea at rest, No dyspnea on exertion, No hemoptysis, No problem reported, No shortness of breath, No sputum, No wheezing Cardiovascular: No PND, No chest pain, No claudication, No edema, No orthopnea, No palpitations, No problem reported Abdomen: No GI bleeding, No constipation, No diarrhea, No nausea, No pain, No problem reported, No vomiting Musculoskeletal: No calf pain, No joint pain, No muscle pain, No problem reported, No swelling Genitourinary - Female: No dysmenorrhea, No dysuria, No hematuria, No menorrhagia, No metrorrhagia, No , No problem reported, No rash, No urinary frequency, No urinary incontinence, No urinary retention, No urinary urgency, No vaginal bleeding, No vaginal discharge, No vaginal itching, No vulvodynia Neurologic: No balance problems, No memory loss, No numbness/tingling, No paralysis, No problem reported, No vertigo, No weakness Psychiatric: No anhedonism, No anxiety, No depression symptoms, No insomnia , No problem reported, No substance abuse Hematologic / Lymphatic: No abnormal bleeding/bruising, No clotting problems , No night sweats, No problem reported, No swollen lymph nodes Integumentary: No bleeding, No color change, No itch, No new/changing skin lesions, No problem reported, No rash Physical Exam: General Appearance: WD/WN, no apparent distress Eyes: normal inspection, PERRL, EOMI ENT: normal ENT inspection, hearing grossly normal, TMs normal, pharynx normal Neck: supple, no adenopathy, thyroid normal, no JVD Respiratory/Chest: chest non-tender, normal breath sounds, no respiratory distress, no accessory muscle use, + decreased breath sounds Cardiovascular: regular rate, rhythm, no edema, no gallop, no JVD, normal peripheral pulses Abdomen / GI: normal bowel sounds, non tender, soft, no organomegaly, no pulsatile mass Extremities: normal inspection, no calf tenderness, normal capillary refill , no pedal edema, normal range of motion Neurologic/Psychiatric: physical therapy manager II-XII nml as tested, no motor/sensory deficits , alert, normal mood/affect, normal reflexes, oriented x 3 Skin: normal color, warm/dry, no rash Hospital Course 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 admitted on 11/26/2016, Has been stable and looking for acute rehab placement, slowly improvement Dr. Leonard spoke to Dr Pearce(sp?) a [facility] neurologist 11/27/16 , reviewed the case and he suggested that we continue B12 supplementation and refer to rehab, Per progress note psychological counseling to help with substance abuse issue, however pt is not interested in this at this time She is slow recovery , counselling her to stay away of any abuse of medications or narcotic or anything else, Without follow-up doctors advice may cause permanent organ damage and even , she understand and agreed peripheral neuropathy stable, continue current care Constipation, has been treated with Colace as needed Patient is ready for placement when bed available Offered a chance to talk to family all parent, patient declined Instructions / Follow-Up you was admitted because of nitrous oxide abuse you have neurologic affects of nitrous oxide abuse you have Vit B12 deficiency you should continue treatment as in below: B12 1000mcg im daily for 3 dose then weekly for 4 week, then monthly for 6 month - you need to follow up with your primary care physician in 1 week, - take medication as instructed, never overdose or any misuse, or take with alcohol, because misuse of medicine may cause organ damage or , call your primary care physician if have questions of medicaitons. - call your primary care physician OR go to local emergency room if has any fever/chill, chest pain, shortness of breathing, nausea/vomiting/abdominal pain , facial droop/slurry speech/local weakness, or if has any questions. - fall precaution - diet as instructed - you need to follow up with your subspecialist - you should understand that it is important to follow up the above instruction , and "not following the above instruction", or "drug abuse" or "any kind of over dose" may cause may cause permanent organ damage and even . Total Time Spent: Less than 30 minutes This includes examination of the patient, discharge planning, medication reconciliation, and communication with other providers. Discharge Instructions Please refer to the electronic Patient Visit Report (Discharge Instructions) for additional information. Additional Copies To [facility]
[2016-12-02 13:47] VITALS: BP 102/57; PULSE 89; TEMP 36.6; O2SAT 98
== END 2016-12-02 15:30 | DRG 897 ==
LOC: ENRESERVTM → ENRESERVDT → EDBD 14:33 → C.EDD 14:36 → C.4E 23:12
PROVIDERS: ADMIT Hospitalist; ATTEND Hospitalist
DX: F19.20 Other psychoactive substance dependence, uncomplicated (principal); E53.8 Deficiency of other specified B group vitamins; M41.9 Scoliosis, unspecified; F17.210 Nicotine dependence, cigarettes, uncomplicated; K59.00 Constipation, unspecified; G62.9 Polyneuropathy, unspecified